=== PATIENT | male | born 1965 | race African-American/Black ===

== ENCOUNTER → 2021-08-05 | Outpatient (CLI) | payer OTHER | END | disposition home or self-care (01) | LOC: LABMN 14:39 | PROVIDERS: ATTEND Physical Medicine & Rehabilitation Spinal Cord Injury Medicine | DX: M19.031 Primary osteoarthritis, right wrist (principal); M17.11 Unilateral primary osteoarthritis, right knee; M47.27 Other spondylosis with radiculopathy, lumbosacral region; M77.8 Other enthesopathies, not elsewhere classified; M25.811 Other specified joint disorders, right shoulder | CPT/HCPCS: 72040; 72100; 73030-TC; 73110-TC; 73562-TC ==